=== PATIENT | male | born 1960 | race African-American/Black ===

== ENCOUNTER 2020-01-18 03:50 | Emergency (ER) | payer OTHER ==
[~2020-01-18] VITALS: Ht 180.3 cm; Wt 118.0 kg
[2020-01-18 05:52] LABS: BASOPHILS % 0.7 % (0.0-2.0); EOSINOPHILS % 6.4 % (0.0-5.0); HEMATOCRIT. 40.6 % (42.0-52.0); HEMOGLOBIN. 13.9 g/dL (14.0-18.0); LYMPHOCYTES % 40.3 % (20.0-50.0); MEAN CORPUSCULAR VOLUME 90.2 fL (80.0-94.0); MEAN PLATELET VOLUME 7.2 fl (7.4-10.4); MONOCYTES % 7.2 % (2.0-8.0); NEUTROPHILS % 45.4 % (40.0-76.0); PLATELET 201 x1000/uL (130-400); RED CELL DISTRIBUTION WIDTH 14.2 % (11.6-14.6)
[2020-01-18 05:55] LABS: CLARITY URINE CLEAR (CLEAR); COLOR URINE YELLOW (YELLOW); KETONES URINE TRACE (NEGATIVE); LEUKOCYTE ESTERASE URINE NEGATIVE (NEGATIVE); NITRITE URINE NEGATIVE (NEGATIVE); OCCULT BLOOD URINE NEGATIVE (NEGATIVE); PH URINE 5.5 (4.5-8.0); PROTEIN URINE NEGATIVE (NEGATIVE); SPECIFIC GRAVITY URINE 1.023 (1.005-1.030)
[2020-01-18 05:58] LABS: CHLORIDE 113 mEq/L (98-107)
[2020-01-18 06:11] LABS: BETA HYDROXYBUTYRATE 0.1 mMol/L (0.0-0.3)
[2020-01-18] MEDS ORDERED: DEXAMETHASONE 4MG/ML 1ML VIAL IM ONE (06:30)
[2020-01-18] MEDS ORDERED: OXYCODONE HCL/ACETAMINOPHEN 5/325MG TABLET PO ONE (06:30)
[2020-01-18] MEDS ORDERED: KETOROLAC 60MG/2ML VIAL IM ONE (06:30)
[2020-01-18 07:45] VITALS: BP 160/76
== END 2020-01-18 16:14 | disposition home or self-care (01) ==
LOC: ER 03:50
DX: M54.5 Low back pain (principal); R73.9 Hyperglycemia, unspecified; R03.0 Elevated blood-pressure reading, without diagnosis of hypertension; Z87.891 Personal history of nicotine dependence
CPT/HCPCS: 36415; 72100; 80053; 81003; 82010; 85025; 93005; 96372; 99285; J1100; J1885